=== PATIENT | male | born 2000 | race Caucasian/White ===

== ENCOUNTER 2022-04-04 14:52 | Emergency (ER) | payer MEDICAID, SELFPAY ==
[2022-04-04 17:00] VITALS: BP 147/95; PULSE 82; RESP 18; TEMP 36.6; O2SAT 100; BMI 24.2
--- NOTE | 2022-04-04 17:04 | ED_ITS ---
HPI - General Adult General Chief complaint: Upper Respiratory Symptoms Stated complaint: Medical clearance for work Time Seen by Provider: 04/04/22 19:47 Related Data Previous Rx's Medication Instructions Recorded benzonatate 200 mg capsule 200 mg PO TID PRN cough #20 caps 04/04/22 Allergies Allergy/AdvReac Type Severity Reaction Status Date / Time No Known Allergies Allergy Verified 04/04/22 17:06 [facility] Social History Social History Alcohol intake: never Smoked in Last 30 Days: No Advance Directives: No Advance Directives Information Provided: No Physical Exam ED Vital Signs: BMI result Body Mass Index 24.2 Course Course Course Narrative: RME: 1908 21 year old male presens for med clearance, work wants him to get covid/flu testing. Reports he has had faituge, malise, nausea, vomiting, dry cough X1 week. No abd pain, cp, sob, fevers chills PE benign Plan: viral test Medications Administered Discontinued Medications Generic Name Dose Route Start Last Admin Trade Name Freq PRN Reason Stop Dose Admin Benzonatate 200 mg 04/04/22 20:07 04/04/22 20:19 Benzonatate 100 Mg Capsule PO 04/04/22 20:08 200 mg ONCE ONE Administration Medical Decision Making Lab Data Labs: Lab Results 04/04/22 Range/Units 18:21 Influenza Type A (PCR) NEGATIVE (Negative) Influenza Type B (PCR) NEGATIVE (Negative) RSV RNA Qual (PCR) NEGATIVE (Negative) SARS-CoV-2 RNA (RT-PCR) NEGATIVE (Negative) Critical Care Time Critical Care Time Critical Care Time: No Discharge Plan Discharge Clinical Impression: Upper respiratory infection Patient Disposition: Home, Self-Care Instructions: Upper Respiratory Infection (ED) Additional Instructions: Drink plenty of fluids Cough drops as prescribed Your COVID/RSV/influenza test negative Prescriptions: New benzonatate 200 mg capsule 200 mg PO TID PRN (Reason: cough) Qty: 20 0RF Interventions: ED Discharge Assessment Last Done: 04/04/22 20:29 Discharge Date/Time: 04/04/22 20:29
[2022-04-04 19:06] LABS: Influenza A PCR NEGATIVE (Negative); Influenza B PCR NEGATIVE (Negative); Resp Syncy Virus RNA Qual PCR NEGATIVE (Negative); SARS COV2 PCR INHOUSE NEGATIVE (Negative)
[2022-04-04 19:38] VITALS: BP 130/82; PULSE 79; RESP 16; TEMP 36.8; O2SAT 100; O2SAT 99
--- NOTE | 2022-04-04 19:38 | PC.NURSE ---
Pt is alert and oriented. c/o cough, fever diaphoresis, sore thrt, stiff neck, headache. Onset 1 wk ago, sent here by job to be tested for covid.
[2022-04-04] MEDS: Benzonatate 100 MG CAPSULE 200 MG PO (20:19)
== END 2022-04-04 20:29 | disposition home or self-care (01) ==
PROVIDERS: Physician Assistant; Emergency Provider Internal Medicine
DX: R53.83 Other fatigue (principal); R05.9 Cough, unspecified; Z20.822 Contact with and (suspected) exposure to COVID-19
CPT/HCPCS: 0241U; 99283; 99284